=== PATIENT | female | born 1940 | race Caucasian/White ===

== ENCOUNTER 2017-04-12 23:30 | Inpatient (IN) | payer MEDICARE ==
[~2017-04-12] VITALS: Ht 162.6 cm; Wt 51.5 kg
--- NOTE | ~2017-04-12 | OR ---
PATIENT'S NAME: NAIMA SANCHEZ [facility] AGE: 76 Y [address] ROOM: [address] [address] LOCATION: [facility] ADMIT DATE: 04/12/2017 OR/Procedure Report DISCHARGE DATE: FAMILY PHYSICIAN: Pj Ruiz MD ATTENDING PHYSICIAN: CAN HWANG V SURGEON: Aleks Ashley MD SOLAR SALES ASSESSOR: DATE OF PROCEDURE: 04/13/2017 DIAGNOSIS: Right hip displaced femoral neck fracture with minimal osteoarthritic changes. PROCEDURE: Right hip hemiarthroplasty. ANESTHESIA: General. INDICATION: Ms. Sanchez fell at home. Right hip displaced femoral neck fracture for hemiarthroplasty. Risks, benefits, and alternatives have been discussed with the patient and . DESCRIPTION OF PROCEDURE: Ms. Sanchez was taken to the operating, 2 g Kefzol given intravenously for prophylaxis. TSA protocol. General anesthetic via endotracheal tube. Positioned on the PEG board, left lateral decubitus position. Right flank hip and lower extremity prepared with DuraPrep and draped sterilely. An 8 cm incision was made posterior lateral to the hip, dissection down through subcutaneous tissue to the fascia. Iliotibial band was incised about the trochanter. The interval between the superior and inferior gluteus abel identified was divided in line with the incision. Sciatic nerve was identified and protected. Charnley retractors were placed. Piriformis was identified, elevated from the capsule, divided and tagged. Short rotators were elevated from the capsule, tagged and divided. Capsule was Teed. The femoral neck was cut 1 cm above the lesser trochanter, 45- degree angle to the shaft, 15 degrees anteversion. Head was removed from the acetabulum. Bone fragments were all removed, osteoporotic, no destructive lesions evident, sized to a 44 mm. 44 mm trial was a good fit. The ForMune cutter was used for a lateral entry point into the canal. Canal finder was advanced. Using the Maggy system broaches were advanced to a size 10. Standard length neck with a 44 mm head was excellent fit, was stable and good motion. Soft tissues were properly tension. Trial components were removed, irrigated. The permanent implant Press-fit 10 mm stem was driven in place. A 44 mm standard length neck head was placed on the stem impacted. Hip was relocated, stable motion, proper tension. Capsule closed with #1 Vicryl. Piriformis short rotators attached to the greater trochanter with #1 Vicryl. The gluteal fascia was closed with #1 Vicryl. Subcutaneous tissues closed with 0 Vicryl, followed by 2-0 Vicryl subcuticular, followed by ilene. Dry PATIENT'S NAME: NAIMA SANCHEZ [facility] AGE: 76 Y [address] ROOM: [place] [address] LOCATION: [facility] ADMIT DATE: 04/12/2017 OR/Procedure Report DISCHARGE DATE: FAMILY PHYSICIAN: Pj Ruiz MD ATTENDING PHYSICIAN: CAN HWANG V sterile dressing placed. Procedure was done without complication. ESTIMATED BLOOD LOSS: From the procedure was nil. FLUID REPLACEMENT: Crystalloids. SPECIMENS: None. DRAINS: None. DISPOSITION: To recovery room in stable condition. ALEKS ASHLEY MD DPM/modl /[id number] d: 04/13/17 2325 t: 04/19/17 1149, OPERATIVE SUMMARY
--- NOTE | ~2017-04-12 | HP ---
PATIENT'S NAME: NAIMA SANCHEZ [facility] AGE: 76 Y [address] ROOM: [place] [address] LOCATION: [facility] ADMIT DATE: 04/12/2017 History & Physical DISCHARGE DATE: FAMILY PHYSICIAN: Pj Ruiz MD ATTENDING PHYSICIAN: CAN HWANG V DATE OF SERVICE: 04/13/2017 HISTORY OF PRESENT ILLNESS: Ms. Sanchez is a 76-year-old white female with dementia, otherwise healthy, fell at home, right hip displaced femoral neck fracture. No other injuries. PAST MEDICAL HISTORY: Remarkable for dementia. Does not smoke or drink. MEDICATIONS: Tylenol. ALLERGIES: NONE KNOWN. REVIEW OF SYSTEMS: As above. FAMILY MEDICAL HISTORY: Noncontributory. PERSONAL AND SOCIAL HISTORY: Lives with her in [place]. PHYSICAL EXAMINATION: GENERAL: White female, minimal distress. Confused. HEENT: Hears and sees. NECK: Nontender. BACK: Nontender. HEART: Pulse rate is regular. LUNGS: Takes in deep breath. ABDOMEN: Soft. EXTREMITIES: Right leg short and rotated. Painful motion of right hip. Right leg is neurovascularly intact. IMAGING STUDIES: X-rays displaced femoral neck fracture, minimal osteoarthritic changes. ASSESSMENT/PLAN: PATIENT'S NAME: NAIMA SANCHEZ [facility] AGE: 76 Y [address] ROOM: [place] [address] LOCATION: [facility] ADMIT DATE: 04/12/2017 History & Physical DISCHARGE DATE: FAMILY PHYSICIAN: Pj Ruiz MD ATTENDING PHYSICIAN: CAN HWANG V For hemiarthroplasty risks, benefits, and alternatives have been discussed. JOE ASHLEY MD DPM/stonel /[id number] D: [id number] T: [id number] HISTORY & PHYSICAL
--- NOTE | ~2017-04-12 | HP ---
PATIENT'S NAME: NAIMA SANCHEZ [facility] AGE: 76 Y [address] ROOM: [place] [address] LOCATION: [facility] ADMIT DATE: 04/12/2017 History & Physical DISCHARGE DATE: FAMILY PHYSICIAN: PHYSICIAN, UNKNOWN ATTENDING PHYSICIAN: CAN HWANG V DATE OF SERVICE: CHIEF COMPLAINT: Right hip fracture. HISTORY OF PRESENT ILLNESS: The patient is a 76-year-old female transferred here from [place]. Apparently, she does not have any significant past medical history aside from dementia and noncontrolled hypertension. The patient sustained a right hip fracture after a mechanical fall earlier in [place] today. She was transferred to [facility] for Orthopedic evaluation for surgical fixation. At this point, the patient appears in mild amount of pain, but reports no shortness of breath, nausea, vomiting, diarrhea, chest pain, or palpitations. She is quite demented and unable to provide me her past medical history. REVIEW OF SYSTEMS: All systems have been reviewed and are negative aside from pertinent positives as mentioned above. PAST MEDICAL HISTORY: Past medical history, which was reported to us by the is that of dementia and hypertension. CURRENT MEDICATIONS: Acetaminophen. SOCIAL HISTORY: We were unable to obtain as the patient is quite demented. FAMILY HISTORY: Cannot be obtained due to dementia. PHYSICAL EXAMINATION: VITAL SIGNS: Blood pressure of 167/94, heart rate 77, satting 98% on 2 L nasal cannula, temperature is 97, and respirations are 20. GENERAL: Appears as an elderly frail female in mild amount of distress. NEUROLOGIC: Exam is nonfocal. EYES: Exam shows pupils are equal and reactive to light. PATIENT'S NAME: NAIMA SANCHEZ [facility] AGE: 76 Y [address] ROOM: [address] [address] LOCATION: [facility] ADMIT DATE: 04/12/2017 History & Physical DISCHARGE DATE: FAMILY PHYSICIAN: PHYSICIAN, UNKNOWN ATTENDING PHYSICIAN: CAN HWANG V LYMPHATICS: Exam shows no cervical lymphadenopathy. ENDOCRINE: Exam shows no thyromegaly. LUNGS: Clear to auscultation. HEART: Rate is regular with a more pronounced S1 and no appreciable murmurs, gallops, or rubs. ABDOMEN: Soft, nontender, nondistended. : Reveals no costovertebral angle tenderness. MUSCULOSKELETAL: Exam is deferred. LABORATORY DATA: Review of the studies available so far is a basic metabolic profile remarkable for potassium of 3.3, unremarkable CBC, a pelvic x-ray, which shows right femoral neck fracture as well as significant constipation. Chest x-ray and EKG is still pending. ASSESSMENT AND PLAN: This is a 76-year-old female who is planned for surgical fixation of a right hip fracture. At this point, we will obtain a baseline EKG as well as a chest x-ray. We will also get a urinalysis. If these are unremarkable, the patient may proceed to surgery. 1. Constipation. The patient will need a much more aggressive bowel regimen perioperatively. 2. Dementia, this is noted. 3. Deep venous thrombosis prophylaxis as per Orthopedics. 4. Additional management will depend on clinical course. Time dedicated to this patient encounter is 35 minutes. MD GIANA FELIX/silke /[id number] D: [id number] T: [id number] HISTORY & PHYSICAL
--- NOTE | ~2017-04-12 | OR ---
PATIENT'S NAME: NAIMA SANCHEZ [facility] AGE: 76 Y [address] ROOM: [place] [address] LOCATION: [facility] ADMIT DATE: 04/12/2017 OR/Procedure Report DISCHARGE DATE: FAMILY PHYSICIAN: Pj Ruiz MD ATTENDING PHYSICIAN: CAN HWANG V SURGEON: Aleks Nevarez MD DRUG ABUSE SOCIAL WORKER: DATE OF PROCEDURE: 04/14/2017 DIAGNOSIS: Dislocated right hip. PROCEDURE: Closed relocation of right hip. ANESTHESIA: Propofol. INDICATIONS: Ms. Sanchez is one day status post a right hip hemiarthroplasty for displaced femoral neck fracture. The patient is demented and lacks insight into a proper hip precautions, but sustained a significant fall, hit her head, CT scan showed no acute changes; also, had sprains to her elbow, wrist, and shoulder, right hip dislocated without apparent fracture for closed relocation. DESCRIPTION OF PROCEDURE: In the postanesthesia area with monitored support, propofol anesthetic, right hip was carefully relocated, x-ray showed a concentric reduction. We will place her in a hip abduction brace to give her added reminder to follow hip precautions. We will also do a CT scan to be absolutely sure that there is no acetabular posterior wall fracture from the traumatic injury. MD ERIN HOLBROOKM/modl /[id number] d: 04/15/17 0139 t: 04/19/17 1151, OPERATIVE SUMMARY
--- NOTE | ~2017-04-12 | DS ---
PATIENT'S NAME: NAIMA SANCHEZ [facility] AGE: 76 Y [address] ROOM: [place] [address] LOCATION: [facility] ADMIT DATE: 04/12/2017 Discharge Summary DISCHARGE DATE: 04/19/2017 FAMILY PHYSICIAN: Pj Ruiz MD ATTENDING PHYSICIAN: Louie Barroso V PRINCIPAL DIAGNOSES: 1. Right femoral neck fracture. 2. Dementia. 3. Agitation. 4. Delirium. 5. Right hip dislocation. BRIEF HOSPITAL COURSE: Please refer to admitting H and P for a detailed history of initial presentation. The patient is 76 years old. She has a history of dementia. She had fallen at Facility, and admitted after she was found to have a right femoral neck fracture. The patient was subsequently seen by Ortho Service here, and had a right hip hemiarthroplasty on 04/13/2017, and re-location of the displaced sarah on 04/14/2017. The patient, during her hospitalization, was in and out of delirium and agitation, and these were managed with as needed medications. The patient today is up in the chair, in good spirits, and participating in therapy as much as possible. DISCHARGE FOLLOWUP: The patient is to follow up with the Ortho in three weeks. CONDITION ON DISCHARGE: She is being discharged in satisfactory condition. PHYSICAL EXAMINATION: GENERAL: She is awake, alert, and oriented x3, in good spirits. HEART: S1 and S2. Regular rate and rhythm. CHEST: Clear to auscultation bilaterally. ABDOMEN: Soft, nontender, and nondistended. EXTREMITIES: Without edema. DISPOSITION: Back to her Facility. Greater than 30 minutes were spent in discharge planning and facilitating. MARIO QUINTANA MD BG/modl PATIENT'S NAME: NAIMA SANCHEZ [facility] AGE: 76 Y [address] ROOM: [place] [address] LOCATION: [facility] ADMIT DATE: 04/12/2017 Discharge Summary DISCHARGE DATE: 04/19/2017 FAMILY PHYSICIAN: Pj Ruiz MD ATTENDING PHYSICIAN: Louie Barroso V /[id number] d: 04/20/17617 t: 05/02/17 1509, DISCHARGE SUMMARY
[2017-04-13] MEDS ORDERED: TYLENOL325 MG PO (00:37)
[2017-04-14 05:58] LABS: BASOPHIL % 0.3 %; EOSINOPHIL # 0.2 K/uL (0.0-0.5); EOSINOPHIL % 1.5 %; HEMATOCRIT 33.2 % (33.0-46.0); HEMOGLOBIN 11.4 g/dL (10.0-15.0); IMMATURE GRANULOCYTE % 0.1 %; LYMPHOCYTE % 9.9 %; MCH 31.1 pg (27.0-34.0); MCHC 34.3 gm/dL (32.0-36.5); MCV 90.7 fl (83.0-98.0); MONOCYTE # 0.8 K/uL (0.0-1.0); MONOCYTE % 7.8 %; MPV 11.1 fl (9.4-12.4); NEUTROPHIL # (ANC) 7.9 K/uL (1.8-7.8); NEUTROPHIL % 80.4 %; NRBC % 0 /100WBC (0-0.00); PLATELET COUNT 208 K/uL (150-450); RBC 3.66 M/uL (3.50-5.50); RDW-CV 13.2 % (11.9-14.6); WBC 9.8 K/uL (4.0-11.0)
[2017-04-14 06:16] LABS: ANION GAP 9.4 (10.0-19.0); BLOOD UREA NITROGEN 9 mg/dL (6-24); CALCIUM 8.2 mg/dL (8.5-10.5); CHLORIDE 105 mMol/L (96-110); CO2 28 mMol/L (22-32); CREATININE 0.7 mg/dL (0.5-1.1); ESTIMATED GFR (MDRD EQUATION) > 60; MAGNESIUM 1.8 mg/dL (1.8-2.6); POTASSIUM 3.4 mMol/L (3.7-5.1); SODIUM 139 mMol/L (135-145)
[2017-04-15 04:56] LABS: HEMATOCRIT 22.8 % (33.0-46.0); HEMOGLOBIN 7.5 g/dL (10.0-15.0)
[2017-04-15 05:10] LABS: ANION GAP 11.8 (10.0-19.0); CALCIUM 7.6 mg/dL (8.5-10.5); CHLORIDE 107 mMol/L (96-110); CO2 26 mMol/L (22-32); CREATININE 0.8 mg/dL (0.5-1.1); ESTIMATED GFR (MDRD EQUATION) > 60; POTASSIUM 3.8 mMol/L (3.7-5.1); SODIUM 141 mMol/L (135-145)
[2017-04-15 05:11] LABS: BLOOD UREA NITROGEN 19 mg/dL (6-24)
[2017-04-15 15:13] LABS: HEMATOCRIT 21.6 % (33.0-46.0)
[2017-04-15 15:14] LABS: HEMOGLOBIN 7.3 g/dL (10.0-15.0)
[2017-04-16 04:22] LABS: BASOPHIL % 0.3 %; EOSINOPHIL # 0.1 K/uL (0.0-0.5); HEMATOCRIT 29.7 % (33.0-46.0); HEMOGLOBIN 10.4 g/dL (10.0-15.0); IMMATURE GRANULOCYTE % 0.2 %; LYMPHOCYTE # 1.2 K/uL (0.8-4.0); LYMPHOCYTE % 11.8 %; MCH 30.8 pg (27.0-34.0); MCV 87.9 fl (83.0-98.0); MONOCYTE # 1.1 K/uL (0.0-1.0); MONOCYTE % 10.5 %; MPV 11.2 fl (9.4-12.4); NEUTROPHIL # (ANC) 7.9 K/uL (1.8-7.8); NEUTROPHIL % 76.2 %; NRBC % 0 /100WBC (0-0.00); PLATELET COUNT 188 K/uL (150-450); RBC 3.38 M/uL (3.50-5.50); RDW-CV 13.3 % (11.9-14.6); WBC 10.3 K/uL (4.0-11.0)
[2017-04-16 04:49] LABS: ANION GAP 12.6 (10.0-19.0); BLOOD UREA NITROGEN 10 mg/dL (6-24); CALCIUM 7.9 mg/dL (8.5-10.5); CHLORIDE 107 mMol/L (96-110); CO2 24 mMol/L (22-32); CREATININE 0.5 mg/dL (0.5-1.1); ESTIMATED GFR (MDRD EQUATION) > 60; POTASSIUM 3.6 mMol/L (3.7-5.1); SODIUM 140 mMol/L (135-145)
[2017-04-17 06:12] LABS: BASOPHIL % 0.2 %; EOSINOPHIL # 0.3 K/uL (0.0-0.5); EOSINOPHIL % 3.5 %; HEMATOCRIT 29.5 % (33.0-46.0); IMMATURE GRANULOCYTE % 0.2 %; LYMPHOCYTE # 1.7 K/uL (0.8-4.0); LYMPHOCYTE % 20.6 %; MCH 30.6 pg (27.0-34.0); MCHC 33.9 gm/dL (32.0-36.5); MCV 90.2 fl (83.0-98.0); MONOCYTE # 0.7 K/uL (0.0-1.0); MONOCYTE % 8.6 %; MPV 10.8 fl (9.4-12.4); NEUTROPHIL # (ANC) 5.4 K/uL (1.8-7.8); NEUTROPHIL % 66.9 %; NRBC % 0 /100WBC (0-0.00); RBC 3.27 M/uL (3.50-5.50); RDW-CV 13.6 % (11.9-14.6)
[2017-04-17 06:13] LABS: PLATELET COUNT 239 K/uL (150-450)
[2017-04-18 04:05] LABS: BASOPHIL % 0.2 %; EOSINOPHIL # 0.2 K/uL (0.0-0.5); EOSINOPHIL % 2.2 %; HEMOGLOBIN 10.6 g/dL (10.0-15.0); IMMATURE GRANULOCYTE % 0.3 %; LYMPHOCYTE # 1.8 K/uL (0.8-4.0); LYMPHOCYTE % 17.2 %; MCH 30.5 pg (27.0-34.0); MCHC 34.2 gm/dL (32.0-36.5); MCV 89.3 fl (83.0-98.0); MONOCYTE % 9.4 %; MPV 10.7 fl (9.4-12.4); NEUTROPHIL # (ANC) 7.2 K/uL (1.8-7.8); NEUTROPHIL % 70.7 %; NRBC % 0 /100WBC (0-0.00); RBC 3.47 M/uL (3.50-5.50); RDW-CV 13.4 % (11.9-14.6); WBC 10.2 K/uL (4.0-11.0)
[2017-04-18 04:06] LABS: PLATELET COUNT 290 K/uL (150-450)
== END 2017-04-19 12:00 | DRG 469 ==
LOC: G3N 23:30
PROVIDERS: Internal Medicine; Nurse Practitioner Family; Orthopaedic Surgery; ADMIT Internal Medicine
PROC: 0SRR0JA Replacement of Right Hip Joint, Femoral Surface with Synthetic Substitute, Uncemented, Open Approach (ICD-10-PCS; principal; 2017-04-13)
PROC: 0SS9XZZ Reposition Right Hip Joint, External Approach (ICD-10-PCS; 2017-04-14)
PROC: 30233N1 Transfusion of Nonautologous Red Blood Cells into Peripheral Vein, Percutaneous Approach (ICD-10-PCS; 2017-04-15)
DX: S72.001A Fracture of unspecified part of neck of right femur, initial encounter for closed fracture (principal); G93.40 Encephalopathy, unspecified; E43 Unspecified severe protein-calorie malnutrition; D62 Acute posthemorrhagic anemia; S73.004A Unspecified dislocation of right hip, initial encounter; W19.XXXA Unspecified fall, initial encounter; F03.90 Unspecified dementia, unspecified severity, without behavioral disturbance, psychotic disturbance, mood disturbance, and anxiety; I10 Essential (primary) hypertension; K59.00 Constipation, unspecified; E87.6 Hypokalemia; E03.9 Hypothyroidism, unspecified; S53.401A Unspecified sprain of right elbow, initial encounter; W07.XXXA Fall from chair, initial encounter; Y92.230 Patient room in hospital as the place of occurrence of the external cause; R00.0 Tachycardia, unspecified; R33.9 Retention of urine, unspecified
CPT/HCPCS: C1776; J0690; J1170; J1650; J1885; J2001; J2405; J2550; J3360; J3480; J7030; J7050; J7120; P9016